=== PATIENT | female | born 1950 | race Caucasian/White ===

== ENCOUNTER 2016-09-09 09:41 | Day surgery (SDC) | payer MEDICARE, OTHER ==
[~2016-09-09] VITALS: Ht 162.6 cm; Wt 63.5 kg
[~2016-09-09 09:41] MED LIST: 0.9% Sodium Chloride 1,000 ML IV PRN; Sodium Chloride LOK Flush 10 mL Syringe IV PRN; fentaNYL-PF 50 mCg/mL 2 mL Inj IVPUSH PRN
[2016-09-09 10:00] VITALS: BP 137/80; PULSE 61; RESP 14; O2SAT 100
[2016-09-09] MEDS ORDERED: MULT-1018 PO (10:13)
[2016-09-09] MEDS ORDERED: CHOL100045 PO (10:13)
[2016-09-09 11:01] VITALS: BP 107/68; PULSE 67; RESP 16; O2SAT 94
[2016-09-09 11:10] VITALS: BP 100/62; PULSE 56; RESP 16; O2SAT 93
[2016-09-09 11:22] VITALS: BP 93/58; PULSE 59; RESP 16; O2SAT 98
--- NOTE | 2016-09-09 11:35 | ENDO ---
[address] [address] ENDOSCOPY PROCEDURE PATIENT: DEEPTI CARDOZA : 1950 MR#: [id number] ADMIT: 09/09/2016 JOB ID: [id number] DATE OF SERVICE: 09/09/2016 PRIMARY PROVIDER: Carlene Prieto MD. PROCEDURE: Colonoscopy with cold snare polypectomy. INDICATIONS: A 66-year-old female who reports for colon cancer screening. EQUIPMENT: [id number]-H180AL. SEDATION: 1. Versed 5 mg. 2. Fentanyl 125 mcg. COMPLICATIONS: None identified. BOWEL PREPARATION: Excellent. PROCEDURE INFORMATION: After the risks and benefits were explained, written and verbal informed consent was obtained. The patient was brought into the endoscopy suite and placed into the left lateral decubitus position. Sedation was achieved using the above-stated medications with the addition of oxygen via nasal cannula. A digital rectal examination was accomplished. No significant pathology appreciated. The scope was introduced into the rectum and advanced under direct visualization to the level of the cecum, as identified by the appendiceal orifice and ileocecal valve. The scope was slowly withdrawn to carefully examine the mucosa for any defects or lesions. Retroflexed views were avoided in the rectum. Multiple direct views were made through the dentate line for exclusion of pathology. The colon was decompressed. The scope removed from the patient who tolerated the procedure well. FINDINGS: There was a diminutive, perhaps 4, maybe 5 mm polyp in the rectosigmoid region, removed with cold snare. No other significant pathology was appreciated throughout. ENDOSCOPIC DIAGNOSIS: Diminutive colon polyp. RECOMMENDATIONS: 1. Await histopathology. 2. If this is confirmed adenomatous, repeat colonoscopy in five years.
--- NOTE | 2016-09-10 14:21 | PATH ---
SURGICAL PATHOLOGY Attending Physician:Jorje Casiano CASE STATUS: Signed Out PATIENT NAME: DEEPTI CARDOZA PID: [id number] : 1950 DATE COLLECTED:09/09/2016 16:34 SPECIMEN: Colon, Biopsy CLINICAL HISTORY: 1). RECTAL SIGMOID COLON POLYP X1 FINAL DIAGNOSIS: 1.RECTAL SIGMOID COLON POLYP: TUBULAR ADENOMA. ICD10 CODE D12.7 GROSS DESCRIPTION: The specimen is received in one formalin filled container labeled with the patient's name, sublabeled "rectal sigmoid colon polyp x1" and consists of a 0.2 x 0.2 x 0.2 CM portion of tissue which is entirely submitted in one cassette. 09/09/2016 DAC MICRO DESCRIPTION: See diagnosis. ICD-9 CODES: CPT CODES: 1: 06067 Electronically Signed Out Tarsha Capone MD [facility] [address], [place] [address] Technical component performed at [facility], [address] [place] [address] Ave[address], [place], [address]
== END 2016-09-09 23:59 | disposition home or self-care (01) ==
LOC: END 09:41
PROVIDERS: ATTEND Internal Medicine Gastroenterology
DX: Z12.11 Encounter for screening for malignant neoplasm of colon (principal); D12.7 Benign neoplasm of rectosigmoid junction; K21.9 Gastro-esophageal reflux disease without esophagitis; G47.00 Insomnia, unspecified; F32.9 Major depressive disorder, single episode, unspecified; M85.9 Disorder of bone density and structure, unspecified
CPT/HCPCS: 45385; 88305; 99153; G0500; J2250; J3010; J7030